=== PATIENT | male | born 1955 | race Caucasian/White ===

== ENCOUNTER 2021-09-30 00:06 | Emergency (ER) | payer OTHER ==
[~2021-09-30] VITALS: Ht 180.3 cm; Wt 95.2 kg
[~2021-09-30 00:06] MED LIST: ASPI325 PO; ATOR40TA PO; CARV25 PO; CARV6.25 PO; CLOP75 PO; DIAZ5 PO; Isosorbide Mono30 MG PO; L-Tryptophan500 MG; LISI20 PO; LISI5 PO; LOVA20 PO; MELA3 PO; Multiple Vitam1 EAC1 PO; Nitrostat0.4 MG SL; OXYACE5T PO
[2021-09-30 00:37] LABS: BASOPHILS ABSOLUTE AUTO 0.05 K/mm3 (0.00-0.23); BASOPHILS PERCENT AUTO 1 % (0-2); EOSINOPHILS ABSOLUTE AUTO 0.18 K/mm3 (0.00-0.68); EOSINOPHILS PERCENT AUTO 2 % (0-6); Hematocrit 43.5 % (37.0-53.0); Hemoglobin 15.1 g/dL (13.5-17.5); IMMATURE GRAN ABSOLUTE AUTO 0.01 K/mm3 (0.00-0.10); IMMATURE GRAN PERCENT AUTO 0 % (0-1); LYMPHOCYTES ABSOLUTE AUTO 2.94 K/mm3 (0.84-5.20); LYMPHOCYTES PERCENT AUTO 37 % (21-46); MONOCYTES ABSOLUTE AUTO 0.94 K/mm3 (0.16-1.47); MONOCYTES PERCENT AUTO 12 % (4-13); Mean Corpuscular HGB 31.8 pg (26.0-34.0); Mean Corpuscular HGB Conc 34.7 g/dL (31.5-36.5); Mean Corpuscular Volume 92 fL (80-100); Mean Platelet Volume 9.7 fL (9.1-12.4); NEUTROPHILS ABSOLUTE AUTO 3.76 K/mm3 (1.96-9.15); NEUTROPHILS PERCENT AUTO 48 % (41-73); Platelet Count 202 K/mm3 (150-400); RDW Coefficient Variation 12.1 % (11.7-14.2); RDW Standard Deviation 41.4 fL (35.1-46.3); Red Blood Cell Count 4.75 M/mm3 (4.30-5.90); White Blood Cell Count 7.88 K/mm3 (4.00-11.30)
[2021-09-30 00:56] LABS: Albumin, Blood 3.9 g/dL (3.4-5.0); Albumin/Globulin Ratio 1.2 (0.8-1.8); Bilirubin, Total 0.2 mg/dL (0.1-1.0); Bun/Creatinine Ratio 19.3 (12.0-20.0); Calcium, Blood 9.3 mg/dL (8.5-10.1); Creatinine, Blood 0.99 mg/dL (0.60-1.20); Globulin, Blood 3.3 g/dL (2.2-4.0); Potassium, Blood 4.2 mmol/L (3.5-5.5); Total Protein, Blood 7.2 g/dL (6.4-8.2)
== END 2021-09-30 02:51 | disposition home or self-care (01) ==
LOC: ER 00:06
PROVIDERS: Emergency Medicine
DX: R00.2 Palpitations (principal); I10 Essential (primary) hypertension; E78.5 Hyperlipidemia, unspecified; I25.2 Old myocardial infarction; Z87.891 Personal history of nicotine dependence; Z79.899 Other long term (current) drug therapy; Z79.82 Long term (current) use of aspirin
CPT/HCPCS: 71045; 80053; 84484; 85025

== ENCOUNTER 2024-01-26 07:53 | Day surgery (SDC) | payer OTHER ==
[~2024-01-26] VITALS: Ht 180.3 cm; Wt 85.4 kg
[2024-01-26] VITALS (13 sets, daily range): BP systolic 92–160; BP diastolic 51–85
[~2024-01-26 07:53] MED LIST changes: +Acetaminophen 500 MG Tab PO SCH; +CYCL10 PO; +CeFAZolin Sodium 2,000 MG in NS 100 ML IV SCH; +Chlorhexidine Mouth Care 15 ML UDC MT SCH; +GABA300 PO; +Lactated Ringer's 1,000 ML IV SCH; +OxyCODONE HCL 10 MG TABCR PO SCH; +REPATHA SU140 MG/1 M SC; +Ropivacaine 0.5% HCl/Pf 123.125 MG,EPINEPHrine HCL 0.25 MG,Ketorolac Tromethamine 15 MG... INFIL SCH; +Tranexamic Acid 100 ML IV SCH
[2024-01-26] MEDS ORDERED: C COMPLEX1000 M1 (08:32)
[2024-01-26] MEDS ORDERED: UBID10 (08:33)
[2024-01-26] MEDS ORDERED: 1/2 NS 250ml250 ML (08:33)
[2024-01-26] MEDS ORDERED: ZINC15 (08:33)
--- NOTE | 2024-01-26 08:48 | NUR ---
Ambulatory in Day SurgeryPre-Op teaching done. Pt verbalizes understanding. History, Chart, Medications and Allergies reviewed before start of procedure.Patient confirms NPO status and agrees with scheduled surgery.
[2024-01-26] MEDS ORDERED: Ascorbic Acid 500 MG Tab PO SCH (09:35)
[2024-01-26] MEDS ORDERED: Midazolam HCl 1MG / ML 2ML Vial IV ONE (09:35)
[2024-01-26] MEDS ORDERED: HYDROmorphone HCl/Pf 1MG SYR IV PRN (09:40)
[2024-01-26] MEDS ORDERED: Lactated Ringer's 1,000 ML IV SCH (09:40)
[2024-01-26] MEDS ORDERED: Bisacodyl 10 MG Supp PR PRN (09:40)
[2024-01-26] MEDS ORDERED: DiphenhydrAMINE HCL 25 MG Cap PO PRN (09:40)
[2024-01-26] MEDS ORDERED: FLU VACC TS2024-25(6MOS UP)/PF 45 MCG/0.5 ML SYRINGE IM PRN (09:40)
[2024-01-26] MEDS ORDERED: Promethazine HCl 25 MG Tab PO PRN (09:45)
[2024-01-26] MEDS ORDERED: Magnesium Hydroxide Conc 10 ML UDC PO PRN (09:45)
[2024-01-26] MEDS ORDERED: Prochlorperazine Edisylate 10 mg Vial IV PRN (09:45)
[2024-01-26] MEDS ORDERED: Metoclopramide HCl 5MG / ML 2ML Vial IV PRN (09:45)
[2024-01-26] MEDS ORDERED: Ondansetron HCl 2 MG / ML 2ML Vial IV PRN (09:45)
[2024-01-26] MEDS ORDERED: OxyCODONE HCL 5 MG TAB PO PRN ×2 (09:50)
[2024-01-26] MEDS ORDERED: Albumin (Human) 12.5gm/250ml 500 ML IV ONE (10:05)
[2024-01-26] MEDS ORDERED: propofoL 100 ML IV ONE (10:05)
[2024-01-26] MEDS ORDERED: Phenylephrine HCl 10mg/ml 1 ml Vial ONE (10:24)
[2024-01-26] MEDS ORDERED: Ketorolac Tromethamine 30mg Vial ONE (11:27)
[2024-01-26] MEDS ORDERED: Dexamethasone Sod Phos 10 MG/ML 1ML VIAL ONE (11:27)
--- NOTE | 2024-01-26 12:44 | NUR ---
POST OP S/P LEFT MCKENZIE ARRIVES TO ROOM 213 VIA BED FROM PACU. PT A/O X4. DENIES PAIN. DRESSING TO LEFT ANT HIP, CDI. DENIES ANY N/T TO EXTREM. DENIES N/V. SIPPING ON CLEAR LIQ. VSS BP 97/51 AND STABLE.
[2024-01-26] MEDS ORDERED: ASPI81CH PO (15:19)
[2024-01-26] MEDS ORDERED: Acetaminophen 500 MG Tab PO SCH (16:00)
--- NOTE | 2024-01-26 16:15 | NUR ---
DISCHARGE SUMMARY POD 0 L MCKENZIE. VSS. TOLERATING ORALS. VOIDING, PT REPORTS FAMILY MEMBER ASSISTED HIM TO RESTROOM-UNMEASURED VOID. AQUACEL C/D/I. PT AMBULATING USING FWW, CLEARED PHYSCIAL THERAPY. IV REMOVED. ALL PERSONAL BELONGINGS c PT, INCLUDING POLAR PACK. DISCHARGE INFORMATION GIVEN, PT VERBALIZES UNDERSTANDING. D/C'd TO POV VIA WHEELCHAIR, DRIVEN BY FAMILY MEMBER.
[2024-01-26] MEDS ORDERED: Lisinopril 20 MG Tab PO SCH (18:00)
[2024-01-26] MEDS ORDERED: Carvedilol 25 MG Tab PO SCH (21:00)
[2024-01-26] MEDS ORDERED: Gabapentin 300 MG Cap PO SCH (21:00)
[2024-01-26] MEDS ORDERED: Melatonin 5 MG Tablet PO SCH (21:00)
[2024-01-26] MEDS ORDERED: Docusate Sodium 100 MG Cap PO SCH (21:00)
[2024-01-27] MEDS ORDERED: Misc. Tablet PO SCH (09:00)
[2024-01-27] MEDS ORDERED: Rivaroxaban 10 MG Tab PO SCH (09:00)
[2024-01-27] MEDS ORDERED: Ascorbic Acid 500 MG Tab PO SCH (09:00)
[2024-01-27] MEDS ORDERED: Misc. Capsule PO SCH (09:00)
== END 2024-01-26 16:20 | disposition home or self-care (01) ==
LOC: ORSCMMR 07:53 → ORD 09:15 → SURS 12:34 → ORSCMMR 16:20
PROVIDERS: Orthopaedic Surgery
PROC: 0SRB0JZ Replacement of Left Hip Joint with Synthetic Substitute, Open Approach (ICD-10-PCS; principal; 2024-01-26 09:15)
DX: M16.12 Unilateral primary osteoarthritis, left hip (principal); E78.00 Pure hypercholesterolemia, unspecified; I25.2 Old myocardial infarction; Z79.899 Other long term (current) drug therapy; Z79.82 Long term (current) use of aspirin
CPT/HCPCS: 72170; 97110; 97116; 97162; A6010; A9270; C1776; J0171; J0690; J0735; J1100; J1885; J2250; J2371; J2704; J2795; J7120; P9045